=== PATIENT | female | born 1990 | race Caucasian/White ===

== ENCOUNTER 2016-10-14 15:51 | Emergency (ER) | payer MEDICARE ==
--- NOTE | 2016-10-14 16:22 | Emergency Department Record ---
History of Present Illness - General Chief Complaint: Laceration(s) Stated Complaint: LACERATION ON FINGER OF LEFT HAND Time Seen by Provider: 10/14/16 16:20 Source: Patient Mode of Arrival: Wheelchair Limitations: No limitations - History of Present Illness Initial Commments: The patient cut her L 3rd finger on a metal object an hour ago. She does have very mild numbness distal to the lac. Her Td is utd. Onset/Timin -: Minutes(s) Place: Outdoors Context: Accidental Associated Symptoms: None Treatments Prior to Arrival: Bandage - Aric Coma Scale Eye Response: (4) Open spontaneously Motor Response: (6) Obeys commands Verbal Response: (5) Oriented [place] Total: 15 - Related Data Hx Tetanus Toxoid Vaccination: Yes Previous Rx's Medication Instructions Recorded Cephalexin [Keflex] 500 mg PO QID #20 cap 10/14/16 Allergies Allergy/AdvReac Type Severity Reaction Status Date / Time Penicillins Allergy HIVES Verified 10/14/16 16:05 Sulfa (Sulfonamide Allergy HIVES Verified 10/14/16 16:05 Antibiotics) Travel Screening - Travel/Exposure Within Last 30 Days Have you traveled within the last 30 days?: No Past Medical History - SOCIAL HISTORY Smoking Status: Never smoker Alcohol Use: None Drug Use: None - RESPIRATORY Hx Respiratory Disorders: No - CARDIOVASCULAR Hx Cardio Disorders: Yes Hx Deep Vein Thrombosis: Yes - NEURO Hx Neuro Disorders: No - Hx Genitourinary Disorders: No - ENDOCRINE Hx Endocrine Disorders: No - MUSCULOSKELETAL Hx Musculoskeletal Disorders: Yes Comment:: parapalegic - PSYCH Hx Psych Problems: No - HEMATOLOGY/ONCOLOGY Hx Hematology/Oncology Disorders: No Family Medical History Any Significant Family History?: No Physical Exam - General General Appearance: Alert, Cooperative, No acute distress - Head Head exam: Atraumatic, Normocephalic, Normal inspection - Eye Eye exam: Normal appearance, PERRL - Extremities Extremities exam: Full ROM (Flexion is intact.), Tenderness, Other (Sensation is decreased to the finger pad over the ulnar 1/2.). negative: Normal inspection (There is a 1.6 cm lac to the distal L 3rd finger ulnar side at the DIP flexor area.) Course Vital Signs 10/14/16 15:58 Temperature 98.0 F Pulse Rate 65 Respiratory 18 Rate Blood Pressure 109/86 Pulse Ox 97 - Reevaluation(s) Reevaluation #1: Procedure note: The L 3rd finger was anesth with 1 cc Lido 1%. The lac was prepped with betadine and lavaged with sterile saline. There was no tendon involvement. The lac was then sutured with 4 4.0 nylon sutures. 10/14/16 16:50 Disposition Disposition: Discharge Clinical Impression: Finger laceration Qualifiers: Encounter type: initial encounter Qualified Code(s): S61.219A - Laceration without foreign body of unspecified finger without damage to nail, initial encounter Disposition: Home, Self-Care Condition: (1) Good Instructions: Laceration (ED) Additional Instructions: Please keep the tube gauze in place for 2 days then no soaking or swimming. Watch for signs of infection. Take the Keflex as directed. Have the sutures removed in 10 days. Prescriptions: Cephalexin [Keflex] 500 mg PO QID #20 cap Forms: Patient Portal Access Time of Disposition: 16:52
== END 2016-10-14 17:48 | disposition home or self-care (01) ==
LOC: ER 15:51
DX: S61.213A Laceration without foreign body of left middle finger without damage to nail, initial encounter (principal); W26.8XXA Contact with other sharp object(s), not elsewhere classified, initial encounter; Y92.89 Other specified places as the place of occurrence of the external cause
CPT/HCPCS: 12001; 99283

== ENCOUNTER 2016-10-24 13:39 | Emergency (ER) | payer MEDICARE ==
--- NOTE | 2016-10-24 13:57 | Emergency Department Record ---
History of Present Illness - General Chief Complaint: Suture removal Stated Complaint: STICHES REMOVED Time Seen by Provider: 10/24/16 13:53 Source: Patient, Family Mode of arrival: Ambulatory Limitations: No limitations - History of Present Illness Initial Comments: 26 yo female presents for a suture removal and wound check of the left middle finger laceration. No complaints, no redness, pus or drainage. No concerns about the healing to this point. MD Complaint: Suture/staple removal Onset/Timin -: Days(s) (10) Initial Visit For: Laceration Returns Today for: Staple/stitch removal Symptoms Since Prior Visit: No new symptoms Associated Symptoms: None - Related Data Previous Rx's Medication Instructions Recorded Cephalexin [Keflex] 500 mg PO QID #20 cap 10/14/16 Allergies Allergy/AdvReac Type Severity Reaction Status Date / Time Penicillins Allergy HIVES Verified 10/14/16 16:05 Sulfa (Sulfonamide Allergy HIVES Verified 10/14/16 16:05 Antibiotics) Travel Screening - Travel/Exposure Within Last 30 Days Have you traveled within the last 30 days?: No Review of Systems Constitutional: Denies: Chills, Fever Eyes: Denies: Eye discharge ENT: Denies: Congestion Respiratory: Denies: Cough Cardiovascular: Denies: Chest pain Endocrine: Denies: Fatigue Gastrointestinal: Denies: Diarrhea, Nausea, Vomiting Genitourinary: Denies: Dysuria, Frequency Musculoskeletal: Reports: As per HPI, Arthralgia Skin: Denies: Bruising, Change in color, Rash Neurological: Denies: Headache Psychiatric: Denies: Anxiety Hematological/Lymphatic: Denies: Easy bleeding, Easy bruising, Swollen glands Past Medical History - SOCIAL HISTORY Smoking Status: Never smoker Alcohol Use: None Drug Use: None - RESPIRATORY Hx Respiratory Disorders: No - CARDIOVASCULAR Hx Cardio Disorders: Yes Hx Deep Vein Thrombosis: Yes - NEURO Hx Neuro Disorders: No - Hx Genitourinary Disorders: No - ENDOCRINE Hx Endocrine Disorders: No - MUSCULOSKELETAL Hx Musculoskeletal Disorders: Yes Comment:: parapalegic - PSYCH Hx Psych Problems: No - HEMATOLOGY/ONCOLOGY Hx Hematology/Oncology Disorders: No Family Medical History Any Significant Family History?: No Physical Exam - General General Appearance: Alert, Oriented x3, Cooperative - Head Head exam: Atraumatic - Eye Eye exam: Normal appearance - ENT ENT exam: Normal exam - Neck Neck exam: Normal inspection - Cardiovascular Peripheral Pulses: 2+: Radial (L) - Extremities Extremities exam: Normal inspection, Full ROM, Normal capillary refill Image of Finger Tip: 1 - good wound approximation, no swelling or redness, healing well without complicaiton - Neurological Neurological exam: Alert, Oriented X3, Other (wheelchair) - Psychiatric Psychiatric exam: Normal affect, Normal mood - Skin Skin exam: Dry, Intact, Normal color, Warm Course - Reevaluation(s) Reevaluation #1: 10/24/16 13:56The sutures were removed without difficulty, the area was cleaned and dried. steri strips placed for additional protection while healing Disposition Disposition: Discharge Clinical Impression: Visit for suture removal Disposition: Home, Self-Care Condition: (1) Good Instructions: Stitches Removal (ED) Additional Instructions: Return if you have any concerns with the ongoing healing of the finger Forms: Patient Portal Access Time of Disposition: 13:57
== END 2016-10-24 14:13 | disposition home or self-care (01) ==
LOC: ER 13:39
DX: Z48.02 Encounter for removal of sutures (principal)